=== PATIENT | male | born 1980 | race Caucasian/White ===

== ENCOUNTER 2017-04-25 13:14 | Emergency (ER) | payer OTHER | END 2017-04-25 14:53 | disposition home or self-care (01) | LOC: SED 13:14 | DX: M79.671 Pain in right foot (principal); M79.672 Pain in left foot; R03.0 Elevated blood-pressure reading, without diagnosis of hypertension; F17.210 Nicotine dependence, cigarettes, uncomplicated; Z90.49 Acquired absence of other specified parts of digestive tract; X58.XXXA Exposure to other specified factors, initial encounter; F15.10 Other stimulant abuse, uncomplicated | CPT/HCPCS: 99283 ==